=== PATIENT | male | born 1960 | race Native Hawaiian/Other Pacific Islander ===

== ENCOUNTER 2025-04-13 09:35 | Outpatient (CLI) | payer MEDICARE, OTHER ==
[2025-04-13] MEDS ORDERED: MUPIROCIN 2% CREAM 15 GM TUBE TP ONE (10:12)
== END 2025-04-13 23:59 | disposition home or self-care (01) ==
LOC: EDBD → WOU 09:35
PROVIDERS: ATTEND Podiatrist Foot & Ankle Surgery
DX: L60.3 Nail dystrophy (principal); L81.9 Disorder of pigmentation, unspecified; L60.2 Onychogryphosis; M79.672 Pain in left foot; M79.671 Pain in right foot
CPT/HCPCS: J7060

== ENCOUNTER 2025-06-15 09:37 | Outpatient (CLI) | payer MEDICARE, OTHER | END 2025-06-15 23:59 | disposition home or self-care (01) | LOC: WOU 09:37 | PROVIDERS: ATTEND Podiatrist Foot & Ankle Surgery | DX: L60.3 Nail dystrophy (principal); L84 Corns and callosities; B35.1 Tinea unguium; L60.2 Onychogryphosis; M79.672 Pain in left foot; M79.671 Pain in right foot; L81.9 Disorder of pigmentation, unspecified | CPT/HCPCS: 11056; G0463 ==